=== PATIENT | female | born 1975 | race Caucasian/White ===

== ENCOUNTER → 2017-03-29 | Outpatient (CLI) | payer OTHER ==
[~2017-03-29] MED LIST: GUMMCHW PO; MULTTAB67 PO; PREN0.01 PO
[2017-03-29 15:14] LABS: AUTOMATED NEUTROPHIL # 9.7 TH/MM3 (1.8-7.7); BASOPHIL # 0.1 TH/MM3 (0-0.2); BASOPHIL % 0.8 % (0.0-2.0); EOSINOPHIL % 0.3 % (0.0-4.0); HEMATOCRIT 34.7 % (35.0-46.0); HEMO FLAGS DIFF FINAL; LYMPH % 18.1 % (9.0-44.0); LYMPHOCYTE # 2.4 TH/MM3 (1.0-4.8); MEAN CELL VOLUME 77.8 FL (80.0-100.0); MEAN CORPUSCULAR HEMOGLOBIN 24.3 PG (27.0-34.0); MEAN CORPUSCULAR HGB CONC 31.2 % (32.0-36.0); MONO % 6.5 % (0.0-8.0); NEUT % 74.3 % (16.0-70.0); PLATELET COUNT 380 TH/MM3 (150-450); RED BLOOD COUNT 4.46 MIL/MM3 (4.00-5.30); RED CELL DISTRIBUTION WIDTH 17.2 % (11.6-17.2); WHITE BLOOD COUNT 13.1 TH/MM3 (4.0-11.0)
[2017-03-29 15:20] LABS: BLOOD, URINE SMALL (NEG); COMMENT (UR) CULT NOT INDICATED; CULTURE IF INDICATED CULT NOT INDICATED; GLUCOSE,URINE NEG (NEG); KETONE, URINE NEG (NEG); MUCUS URINE FEW /lpf (OCC); NITRITE,URINE NEG (NEG); PH, URINE 5.5 (5.0-8.5); SQUAMOUS EPITHELIAL CELL URINE 7 /hpf (0-5); URINE COLOR YELLOW (YELLW/STRAW)
[2017-03-29 15:38] LABS: BETA HCG QUANT LESS THAN 1 MIU/ML (0-5)
--- NOTE | 2017-03-30 14:26 | EKG ---
Date Performed: 03/29/2017 Time Performed: 15:09:27 PTAGE: 42 years EKG: Sinus rhythm NORMAL ECG NO PREVIOUS TRACING DOCTOR: Flo Menchaca Interpretating Date/Time 03/30/2017 14:19:21
== END ==
LOC: CPRE 14:35
PROVIDERS: ATTEND Obstetrics & Gynecology
DX: Z01.810 Encounter for preprocedural cardiovascular examination (principal); Z01.812 Encounter for preprocedural laboratory examination; N92.0 Excessive and frequent menstruation with regular cycle; N94.6 Dysmenorrhea, unspecified
CPT/HCPCS: 36415; 81001; 84702; 85025; 93005

== ENCOUNTER 2017-03-31 10:37 | Observation (INO) | payer OTHER ==
--- NOTE | 2017-03-30 07:59 | MH ---
cc: USHA WOLF DATE OF ADMISSION: 03/31/2017 PREOPERATIVE DIAGNOSIS Menorrhagia, dysmenorrhea. HISTORY OF PRESENT ILLNESS A 42-year-old white female, para 1-0-1-1, who has a one year history of increasing menstrual flow and menstrual pain, often having as many as three cycles in up to 4-5 weeks. Her vaginal ultrasound had shown some symmetrical uterine enlargement. Her endometrial biopsy from 08/18/2016 was benign. Her laboratory studies have shown anemia and she is now admitted for hysterectomy. PAST MEDICAL HISTORY 1. She had a D&C in 2007 for spontaneous . 2. She had a right knee arthroscopy in 2002. 3. in 2004. MEDICATIONS Vitamins. ALLERGIES None. TRANSFUSIONS None. SOCIAL HISTORY She is . She is an educator. Alcohol, tobacco and drugs are none. FAMILY HISTORY Noncontributory. PHYSICAL EXAMINATION GENERAL: A well-nourished, well-developed white female. VITAL SIGNS: Stable. HEENT: Exam is normal. CHEST: Clear. HEART: Regular rate. BREASTS: Symmetrical. ABDOMEN: Benign. PELVIC EXAM: Normal external genitalia and BUS. Vagina is normal. Cervix normal. The uterus is about 12 weeks' size. Adnexa nonpalpable. ASSESSMENT As above. PLAN She is now admitted for a planned laparoscopy, probable LASH procedure with bilateral salpingectomy with ovarian sparing if normal. While in the office I explained the procedures, the risks, benefits, complications and different recovery times based on the type of incision and extent of surgery. The patient would like to proceed. MD SANIA Perez/LULU /7:50 AM /7:57 AM
[~2017-03-31] VITALS: Ht 167.6 cm; Wt 69.5 kg
[~2017-03-31 10:37] MED LIST changes: -MULTTAB67 PO; -PREN0.01 PO
[2017-03-31] MEDS ORDERED: METOPROLOL TARTRATE 25 MG TAB PO PRN (11:15)
[2017-03-31] MEDS ORDERED: LACTATED RINGER'S 1000 ML IV PRN (11:15)
[2017-03-31] MEDS ORDERED: ACETAMINOPHEN 1000 MG/100 ML 100 ML IV SCH (11:15)
[2017-03-31] MEDS ORDERED: SODIUM CHLORID 0.9% 500 ML IV PRN (11:15)
[2017-03-31] MEDS ORDERED: CHLORHEXIDINE GLUCONATE 2 % 1 PACK (2 CLOTHS) TOPICAL PRN (11:15)
[2017-03-31] MEDS ORDERED: POVIDONE IODINE 5% (ANTISEPSIS KIT) 4 APPLICATIONS EACH NARE PRN (11:15)
[2017-03-31] MEDS ORDERED: MULTTAB67 PO (11:17)
[2017-03-31] MEDS ORDERED: ceFAZolin 1,000 MG/NS 100 ML IV SCH ×2 (11:30)
[2017-03-31] MEDS ORDERED: ROCURONIUM INJ 50 MG/5 ML SYRINGE IV PUSH ONE (12:00)
[2017-03-31] MEDS ORDERED: GLYCOPYRROLATE 1 MG/5 ML SYRINGE IV PUSH ONE (12:00)
[2017-03-31] MEDS ORDERED: NEOSTIGMINE 3 MG/3 ML SYR IV ONE (12:00)
[2017-03-31] MEDS ORDERED: ONDANSETRON HCL 4 MG/2 ML VIAL IV PUSH ONE (12:00)
[2017-03-31] MEDS ORDERED: PROPOFOL 200 MG/20 ML AMP IV ONE (12:00)
[2017-03-31] MEDS ORDERED: LIDOCAINE HCL 1% PF 5 ML AMPULE OTHER ONE (12:00)
[2017-03-31] MEDS ORDERED: LACTATED RINGER'S 1000 ML INJ 1,000 ML IV ONE (12:00)
[2017-03-31] MEDS ORDERED: KETOROLAC TROMETHAMINE 30 MG/ML (IVP) VIAL IV PUSH ONE (12:00)
[2017-03-31] MEDS ORDERED: DEXAMETHASONE SOD PHOS 4 MG/ML VIAL IV ONE (12:00)
[2017-03-31] MEDS ORDERED: BUPIVACAINE LIPOSOME PF 1.3% 20 ML VIAL ONE (12:40)
[2017-03-31] MEDS ORDERED: ACETAMINOPHEN 1000 MG/100 ML 0 ML IV ONE (12:40)
[2017-03-31] MEDS ORDERED: HYDROmorphone HCL PF 1 MG/ML VIAL IV PUSH PRN (14:30)
[2017-03-31] MEDS ORDERED: ONDANSETRON ODT 4 MG TAB PO PRN (14:30)
[2017-03-31] MEDS ORDERED: PROMETHAZINE INJ 25 MG/ML VIAL IM PRN (14:30)
[2017-03-31] MEDS ORDERED: diphenhydrAMINE HCL 25 MG CAP PO PRN (14:30)
[2017-03-31] MEDS ORDERED: SODIUM CHLORIDE 0.9% FLUSH 5 ML FLUSH FLUSH PRN (14:30)
[2017-03-31] MEDS ORDERED: ONDANSETRON HCL 4 MG/2 ML VIAL IV PUSH PRN (14:30)
[2017-03-31] MEDS ORDERED: DO NOT ADM ANY ANTICOAGULANT DRUGS PRN (14:39)
[2017-03-31] MEDS: D5-1/2 NS + KCL 20 MEQ INJ 1,000 ML IV SCH ×2 (15:00→23:28)
[2017-03-31] MEDS ORDERED: MORPHINE SULFATE 10 MG/ML INJ IM PRN (15:15)
[2017-03-31] MEDS ORDERED: *morphine SULFATE 8 MG/ML PERIprocedure ONLY ONE (15:27)
[2017-03-31 15:40] VITALS: O2SAT 100
[2017-03-31 16:00] VITALS: BP 111/71; PULSE 66; RESP 16; TEMP 97.8
[2017-03-31] MEDS ORDERED: ONDANSETRON INJ 8 MG in DEXTROSE 5% IN WATER INJ 50 ML IV PUSH PRN ×2 (16:30)
[2017-03-31] MEDS: DOCUSATE SODIUM 100 MG CAP PO SCH (17:00)
[2017-03-31] MEDS: KETOROLAC TROMETHAMINE 30 MG/ML (IVP) VIAL IVP SCH ×2 (17:13→22:59)
[2017-03-31] MEDS: ACETAMINOPHEN 1000 MG/100 ML VIAL IV SCH (19:59)
[2017-03-31 20:00] VITALS: BP 115/63; PULSE 73; RESP 18; TEMP 98.7
[2017-03-31 20:02] LABS: REVIEW FLAG FINAL
[2017-03-31] MEDS ORDERED: ZOLPIDEM TARTRATE 5 MG TAB PO PRN (21:00)
[2017-03-31] MEDS ORDERED: SODIUM CHLORIDE 0.9% FLUSH 5 ML FLUSH FLUSH SCH (21:00)
[2017-03-31 23:17] VITALS: BP 109/54; PULSE 66; RESP 18; TEMP 99
[2017-04-01 04:00] VITALS: BP 108/53; PULSE 57; RESP 18; TEMP 99.1
[2017-04-01] MEDS: ACETAMINOPHEN 1000 MG/100 ML VIAL IV SCH (04:08)
[2017-04-01] MEDS: KETOROLAC TROMETHAMINE 30 MG/ML (IVP) VIAL IVP SCH (05:01)
[2017-04-01] MEDS: DOCUSATE SODIUM 100 MG CAP PO SCH (05:02)
[2017-04-01 05:59] LABS: AUTOMATED NEUTROPHIL # 15.1 TH/MM3 (1.8-7.7); BASOPHIL % 0.2 % (0.0-2.0); HEMATOCRIT 27.3 % (35.0-46.0); HEMO FLAGS DIFF FINAL; LYMPH % 8.6 % (9.0-44.0); LYMPHOCYTE # 1.6 TH/MM3 (1.0-4.8); MEAN CORPUSCULAR HEMOGLOBIN 24.3 PG (27.0-34.0); MEAN CORPUSCULAR HGB CONC 31.2 % (32.0-36.0); MONO % 8.4 % (0.0-8.0); NEUT % 82.8 % (16.0-70.0); PLATELET COUNT 264 TH/MM3 (150-450); RED BLOOD COUNT 3.49 MIL/MM3 (4.00-5.30); RED CELL DISTRIBUTION WIDTH 16.9 % (11.6-17.2); WHITE BLOOD COUNT 18.2 TH/MM3 (4.0-11.0)
[2017-04-01 06:20] LABS: BICARBONATE 25.6 MEQ/L (21.0-32.0); POTASSIUM 4.2 MEQ/L (3.5-5.1)
--- NOTE | 2017-04-01 08:27 | HHI.DCPOC ---
Discharge Care Plan Report Symptoms to Your Doctor -Temperature above 100.5 degrees -Redness, of incision or excessive or foul smelling drainage -Unusual pain or calf pain -Increased vaginal bleeding -Painful or difficulty urinating -Feelings of extreme sadness or anxiety after 2 weeks Goals to Promote Your Health * To prevent worsening of your condition and complications * To maintain your health at the optimal level Directions to Meet Your Goals Take your medications as prescribed Follow your dietary instruction Follow activity as directed Ensure plenty of rest for recovery Drink fluids for hydration Keep your appointments as scheduled Take your immunizations and boosters as scheduled If your symptoms worsen call your PCP, if no PCP go to Urgent Care Center or Emergency Room Smoking is Dangerous to Your Health. Avoid second hand smoke Call the 24-hour crisis hotline for domestic abuse at Jovani Wilson MD Apr 01, 2017 08:27
--- NOTE | 2017-04-01 08:29 | MP ---
cc: USHA WOLF M.D. DATE OF 1975 DATE OF SURGERY 03/31/2017 PREOPERATIVE DIAGNOSIS Menorrhagia, dysmenorrhea, anemia. POSTOPERATIVE DIAGNOSIS Menorrhagia, dysmenorrhea, anemia. PROCEDURE LASH with bilateral salpingectomy. ANESTHESIA General ET. SURGEON Usha Wolf MD BAGGAGE PORTER KATARINA Maier ESTIMATED BLOOD LOSS FOR THE PROCEDURE 500 cc. FLUIDS 1 liter crystalloid. OBJECTIVE FINDINGS Following the induction of adequate general endotracheal anesthesia, the patient was prepped and draped supine on the operating room table in the dorsal lithotomy position in the usual sterile fashion with the bladder being drained via Louise catheterization. The abdomen was opened through a 3-cm curving infraumbilical incision using a knife to cut down through the skin to the fascia. The fascia was opened transversely, stripped from the muscles and the peritoneum entered sharply. Digital palpation was normal. The GelPort was placed, the laparoscope inserted, a 5 port placed in the left lower quadrant and another small port placed in the right lower quadrant. Pelvic contents revealed the uterus to be about 12 weeks' size, symmetrically enlarged. Normal tubes, normal ovaries, normal cul-de-sacs, normal liver edge, normal appendix. Working first on the left, harmonic scalpel was used to take the left mesosalpinx, left round ligament, left broad ligament and left side of the bladder flap. Same was done on the right. The harmonic scalpel was now used to amputate the fundus from the cervix, the pouch inserted to extract the fundus and tubes. The pouch was exteriorized and morcellated in the pouch and the content extracted intact without leakage into the peritoneum. Irrigation was performed. The ureters were inspected with good peristalsis. There was no bleeding with low-pressure test. The operative site was now coated with Evicel. The GelPort was removed, the peritoneum sutured with a running stitch of 2-0 Vicryl, the fascia with a running locking stitch of 0 Vicryl from each corner to midline and tied; the subcu with running 3-0 Vicryl and the skin with a running subcuticular 3-0 Monocryl. The scope was now reinserted through the lower ports and used to inspect the GelPort site which was well closed; no entrapment of viscera. The operative site was checked; there was no bleeding. The scope was removed, the small ports removed and sutured with 3-0 Monocryl subcuticular. Dermabond was applied. The counts were correct and the patient was awakened and taken to the recovery room in good condition. MD SANIA Perez/SSB /8:44 PM /8:23 AM
[2017-04-01] MEDS ORDERED: PNEUMOCOCCAL POLYVALENT INJ 25 MCG/0.5 ML SYR IM ONE (10:00)
== END 2017-04-01 09:50 | disposition home or self-care (01) ==
LOC: HSDC 10:37 → HSDI 14:22 → H1EA 15:48
PROVIDERS: ADMIT Obstetrics & Gynecology; ATTEND Obstetrics & Gynecology
DX: N92.0 Excessive and frequent menstruation with regular cycle (principal); N94.6 Dysmenorrhea, unspecified; D64.9 Anemia, unspecified; N83.8 Other noninflammatory disorders of ovary, fallopian tube and broad ligament; N85.2 Hypertrophy of uterus
CPT/HCPCS: 00840; 58542; 80048; 85014; 85018; 85025; 88307; 94150; 96365; 96366; 96375; 96376; C9290; G0378; J0131; J0690; J1100; J1885; J2270; J2405; J2710; J3010; J3480; J7120